=== PATIENT | female | born 1975 | race Caucasian/White ===

== ENCOUNTER → 2016-06-02 | Outpatient (CLI) | payer BC ==
[~2016-06-02] MED LIST: AGM875 PO; MEDLIST
--- NOTE | 2016-06-02 10:18 | Discharge Instructions ---
Discharge Instructions Procedure Procedure Date: Jun 02, 2016. Reason for visit: Right Mass. Discharge Discharge Date: Jun 02, 2016. Discharge Diagnosis: post right breast ultrasound guided core biopsy Instructions Activity Recommendations: Additional Limitations (see below) Return to School/Work: no limitations Recommended Home Diet: No Limitations Provider Instructions: ACTIVITY RECOMMENDATIONS: * No lifting, pushing, pulling or exercising the affected side for three days. RETURN TO SCHOOL/WORK: * You may return to work/school after the procedure, but do not perform any strenuous activities for 24 to 48 hours. MEDICATIONS: * Tylenol (two 325 mg) every four to six hours if needed for mild pain (if not allergic to Tylenol). DIET: * Resume previous diet. SPECIAL CARE INSTRUCTIONS: * Keep biopsy site dry for 24 hours. May shower after 24 hours, but do not soak (bathe) incision. * May remove Tegaderm (plastic patch) tomorrow AFTER showering. * Leave the steri-strips on for one week. Allow the steri-strips to fall off by themselves. If not off after one week, you may remove them. You may place a Bandaid crosswise over the strips, if desired. * Apply ice 10 minutes on and 10 minutes off as needed. * Wear a bra at bedtime to sleep more comfortably for 2-3 days. * Your referring physician should have the results after approximately 5 to 7 business days. * Call for unusual bleeding, fever, drainage, etc or if you have any questions call [phone] during normal business hours or after hours call Dr Arguello, . FOLLOW UP VISIT: Follow-up with Referring Physician as scheduled. Allergies Coded Allergies: No Known Allergies (Unverified , 03/03/10) Cira Wise Recommendations: Call your doctor if: * Temperature above 101 degrees * Pain not relieved by pain medicine ordered * There is increased drainage or redness from any incision * You have any unanswered questions or concerns. Your Doctors Instructions noted above were prepared by provider Dinorah Arguello. Patient Signature Section: Patient Instructions Signature Page Yadi Cantrellherty Patient (or Guardian) Signature/Date: I have read and understand the instructions given to me by my caregivers. Caregiver/RN/Doctor Signature/Date: The above-named patient and/or guardian has received patient instructions on this date. + Original Patient Signature Page (only) stays with chart. Please make copy for patient.
--- NOTE | 2016-06-02 15:10 | MAMMOGRAPHY REPORT ---
THIS REPORT HAS BEEN AMENDED. ULTRASOUND GUIDED BIOPSY RIGHT BREAST: 06/02/2016 CLINICAL HISTORY: Ill-defined hypoechoic shadowing mass in the 10:00 right breast, thought to correl ate with subtle architectural distortion seen on the right CC view mammographically. Patient presen ts for ultrasound guided core biopsy. COMPARISON: Comparison is made to exams dated: 05/21/2016 ultrasound, 05/21/2016 mammogram, 016 mammogram, and 02/28/2015 mammogram - [facility]. PATIENT CONSENT: The procedure, risks and benefits were discussed with the patient and informed writ ten consent was obtained. Specific risks to this procedure include: bleeding, infection, puncture of adjacent structure, nontarget biopsy, sampling error and medication reaction. PROCEDURE DESCRIPTION: A time out was performed and the right breast was agreed as the site of biops y. The skin was prepped and draped in the usual sterile fashion. The ill-defined hypoechoic shadowin g mass in the 10:00 right breast was chosen as the target for biopsy. Subcutaneous and intraparenchy mal 1% buffered lidocaine was administered as local anesthesia. A skin incision was made. Through t he incision, 5 samples were taken with a 12 gauge Celero biopsy device. A metallic marker was placed at the biopsy site. Hemostasis was achieved after manual compression. The patient tolerated the pro cedure well and there was no immediate complication. The samples were sent expedited to the patholo gy department in an appropriately labeled container. Postprocedure right CC and ML tomosynthesis images with reconstructed CC view were obtained. There is a new ribbon-shaped metallic biopsy marker and no significant hematoma in the 10:00 middle one th ird of the right breast. Based on the post procedure CC view, the biopsy marker clip is located 1.2 cm posterior medial from the geometric center of the distortion, but air bubbles are seen within th e area of distortion, suggesting adequate sampling. Pathology is pending. IMPRESSION: ULTRASOUND GUIDED BIOPSY Status post ultrasound guided core needle biopsy of an ill-defined hypoechoic shadowing mass in the 10:00 right breast, with biopsy marker placed at the site. The patient will receive notification of the biopsy results from her referring physician. Dinorah Arguello M.D. ay/:06/02/2016 10:44:31 Attending Technologist: Jaz NATARAJAN)(M), [facility] Clerical Warehouse Worker: Virginia Beckham, [facility] AMENDMENT: 06/10/2016 Dinorah Arguello M.D. Pathology results from the ultrasound guided core biopsy in the 10:00 right breast of an ill-defined hypoechoic shadowing area yielded fibrocystic change. No tumor seen. The pathology results are co ncordant with the imaging appearance. Based on the postprocedure mammograms including tomosynthesis images, distortion was no longer identified in the area of prior questionable distortion. The appe arance was similar to the diagnostic mammogram images as well. Therefore, questionable distortion w as felt to have been artifactual. Nevertheless, a short interval follow-up right mammogram includin g tomosynthesis images and possible repeat ultrasound is recommended to ensure stability in 6 months . These recommendations were discussed with Dr. Retana, the patient's provider.
--- NOTE | 2016-06-02 15:10 | MAMMOGRAPHY REPORT ---
UNILATERAL RIGHT DIGITAL DIAGNOSTIC MAMMOGRAM TOMOSYNTHESIS: 06/02/2016 CLINICAL HISTORY: Status post ultrasound guided core needle biopsy of an ill-defined shadowing mass in the 10:00 right breast. FINDINGS: Please refer to the report from right breast ultrasound guided core biopsy performed at t he same time for full detail. IMPRESSION: POST PROCEDURE IMAGING FOR MARKER PLACEMENT Please refer to the report from right breast ultrasound guided core biopsy performed at the same eden e for full detail. Approximately 10% of breast cancers are not detected with mammography. A negative mammographic repor t should not delay biopsy if a clinically suggestive mass is present. Dinorah Arguello M.D. ay/:06/02/2016 10:19:06 Attending Technologist: Jaz NATARAJAN)(M), [facility] Director Intelligence Analysis Programs: Virginia Beckham, [facility] BI-RADS Code: Post Procedure Imaging For Marker Placement
== END | disposition home or self-care (01) ==
LOC: C.MAMM 09:32
PROVIDERS: ATTEND Obstetrics & Gynecology
DX: N63 Unspecified lump in breast (principal)

== ENCOUNTER → 2016-08-21 | Outpatient (CLI) | payer BC ==
--- NOTE | 2016-08-21 13:33 | MAMMOGRAPHY REPORT ---
UNILATERAL RIGHT DIGITAL DIAGNOSTIC MAMMOGRAM TOMOSYNTHESIS WITH CAD AND TARGETED RIGHT ULTRASOUND: 08/21/2016 CLINICAL HISTORY: The patient had a benign core needle biopsy of the right breast May 2016, whic h yielded fibrocystic changes without evidence of malignancy. The patient reports an increasing pal pable lump at the site of the biopsy. TECHNIQUE: Breast tomosynthesis in addition to standard 2D mammography was performed. Current study was also evaluated with a Computer Aided Detection (CAD) system. Right CC and MLO 2-D and tomosynt hesis images were obtained. COMPARISON: Comparison is made to exams dated: 05/12/2016 mammogram, 05/21/2016 mammogram, 06/02/2016 mammogram, and 06/02/2016 ultrasound biopsy - [facility]. BREAST COMPOSITION: The tissue of the right breast is heterogeneously dense, which may obscure smal l masses. FINDINGS: A triangle marker yeung the site of the palpable lump in the right upper outer quadrant. A biopsy marker clip is seen in the right upper outer quadrant from recent ultrasound-guided core n eedle biopsy. There are no suspicious masses, calcifications, or areas of clear architectural disto rtion noted in the right breast. There has been no significant interval change. Targeted ultrasound was performed of the area of prior biopsy and palpable lump, in the right breast at 10:00, 5 cm from the nipple. Again noted is an ill-defined hypoechoic shadowing region, which i s ill-defined and therefore difficult to measure, but measures at least 2.2 x 1.8 x 1.3 cm. The are a appears increased in size compared to the prebiopsy ultrasound dated 05/21/2016, previously measur ing 9 x 10 x 7 mm. Given the increase in size, the finding is indeterminate and surgical excision i s recommended for further evaluation. IMPRESSION: ACR BI-RADS CATEGORY 4: SUSPICIOUS, TARGETED ULTRASOUND ACR BI-RADS CATEGORY 4: SUSPICI OUS Interval increase in size of ill-defined hypoechoic shadowing region in the right 10:00 breast, now measuring 2.2 cm. This was previously biopsied and yielded benign pathology. However, given the in crease in size, the finding is indeterminate and surgical excision is recommended for further evalua tion. A phone call was made to the physician's office to confirm faxed results were received. The patient has been verbally notified of the results. Approximately 10% of breast cancers are not detected with mammography. A negative mammographic repor t should not delay biopsy if a clinically suggestive mass is present. Marcelina Rao M.D. ah/:08/21/2016 08:46:04 Keeper Head: Jade NATARAJAN)([place]), [facility] letter sent: Abnormal 4/5 BI-RADS Code: ACR BI-RADS Category 4: Suspicious Ultrasound BI-RADS: ACR BI-RADS Category 4: Suspic ious
== END | disposition home or self-care (01) ==
LOC: C.MAMM 07:53
PROVIDERS: ATTEND Physician Assistant
DX: N63 Unspecified lump in breast (principal)

== ENCOUNTER → 2016-09-21 | Outpatient (CLI) | payer BC | END | disposition home or self-care (01) | LOC: C.PAPS 13:36 | PROVIDERS: ATTEND Obstetrics & Gynecology | DX: Z01.42 Encounter for cervical smear to confirm findings of recent normal smear following initial abnormal smear (principal) ==